=== PATIENT | male | born 1985 ===

== ENCOUNTER 2019-06-18 21:32 | Emergency (ER) | payer SELFPAY ==
[2019-06-18] MEDS ORDERED: Ibuprofen 200 MG TAB ONE (21:51)
== END 2019-06-18 21:55 | disposition home or self-care (01) ==
LOC: ERS 21:32
DX: H66.91 Otitis media, unspecified, right ear (principal); H60.91 Unspecified otitis externa, right ear
CPT/HCPCS: 99282